=== PATIENT | male | born 1960 | race Two or more races ===

== ENCOUNTER → 2025-06-26 | Outpatient (CLI) | payer MEDICAID, SELFPAY ==
[2025-06-26 17:15] LABS: Prostate Specific Antigen 2.02 ng/mL (0-4.00)
== END | disposition home or self-care (01) ==
LOC: COPL 16:08
PROVIDERS: PCP Family Medicine; Referring Provider Surgery; Visit Provider Surgery
DX: N40.1 Benign prostatic hyperplasia with lower urinary tract symptoms (principal)
CPT/HCPCS: 36415; 84153